=== PATIENT | female | born 1975 | race Caucasian/White ===

== ENCOUNTER → 2021-08-23 | Outpatient (CLI) | payer SELFPAY ==
[2021-08-24 18:06] LABS: HPV 16 Negative (Negative); HPV 18 Negative (Negative); HPV OTHER HR TYPES Negative (Negative)
== END | disposition home or self-care (01) ==
LOC: LAB SHORT 11:49
PROVIDERS: Obstetrics & Gynecology
DX: Z01.419 Encounter for gynecological examination (general) (routine) without abnormal findings (principal)
CPT/HCPCS: 87624; G0123

== ENCOUNTER → 2021-10-31 | Outpatient (CLI) | payer OTHER | END | disposition home or self-care (01) | LOC: LAB SHORT 15:21 → PLD 15:21 | DX: N92.0 Excessive and frequent menstruation with regular cycle (principal) | CPT/HCPCS: 88305 ==

== ENCOUNTER 2023-08-14 08:52 | Day surgery (SDC) | payer OTHER ==
[2023-08-14] VITALS (17 sets, daily range): BP systolic 127–163; BP diastolic 69–101
[~2023-08-14] VITALS: Ht 157.5 cm; Wt 108.6 kg
[~2023-08-14 08:52] MED LIST: Budeprion Xl300 MG PO; CeFAZolin Sodium 2,000 MG in NS 50 ML IV SCH; IBUP800 PO; LEVOTHYROXINE175 MC9 PO; LOSA50 PO; Lactated Ringer's 1,000 ML IV SCH; METF500 PO; Naltrexone HCl50 MG PO; Percocet 5-3251 EACH PO; SERT50 PO; TOPI100 PO
[2023-08-14] MEDS ORDERED: Bupivacaine 0.5% HCl 5 MG/ML 30MLVIAL ONE (09:18)
[2023-08-14] MEDS ORDERED: FentaNYL Citrate 50 MCG/ML 5 ML Injection ONE ×2 (09:46→10:46)
[2023-08-14] MEDS ORDERED: propofoL 20 ML IV ONE (09:46)
[2023-08-14] MEDS ORDERED: Dexamethasone Sod Phos 10 MG/ML 1ML VIAL ONE (10:17)
[2023-08-14] MEDS ORDERED: FentaNYL Citrate 50 MCG/ML 2 ML Injection IV PRN ×2 (11:15)
[2023-08-14] MEDS ORDERED: Atropine Sulfate 0.1 MG/ML 10ML SYR IV PRN (11:15)
[2023-08-14] MEDS ORDERED: Ondansetron HCl 2 MG / ML 2ML Vial IV PRN ×2 (11:15→12:00)
[2023-08-14] MEDS ORDERED: LORazepam 2 MG/ML 1ML Injection IV PRN (11:15)
[2023-08-14] MEDS ORDERED: Morphine Sulfate 4 MG/1 ML Injection IV PRN (11:15)
[2023-08-14] MEDS ORDERED: ePHEDrine Sulfate 50 MG/ML 1ML Injection IV PRN (11:15)
[2023-08-14] MEDS ORDERED: Sugammadex Sodium 200 MG/2ML SDV (100 MG/ML) ONE (11:18)
[2023-08-14] MEDS ORDERED: Labetalol HCL 5 MG/ML 4ML Injection (Single Dose) IV PRN (11:20)
[2023-08-14] MEDS ORDERED: HYDROmorphone HCl/Pf 1MG SYR IV PRN ×2 (11:20→11:55)
[2023-08-14] MEDS ORDERED: Albuterol 2.5 MG/3 ML VIAL INH PRN (11:20)
[2023-08-14] MEDS ORDERED: Metoclopramide HCl 10 MG Tab PO PRN (11:55)
[2023-08-14] MEDS ORDERED: Naloxone HCl 0.4MG / ML 1ML Vial IV PRN (11:55)
[2023-08-14] MEDS ORDERED: Simethicone 80 MG Chew PO PRN (11:55)
[2023-08-14] MEDS ORDERED: Metoclopramide HCl 5MG / ML 2ML Vial IV PRN (11:55)
[2023-08-14] MEDS ORDERED: DiphenhydrAMINE HCL 25 MG Cap PO PRN (12:00)
[2023-08-14] MEDS ORDERED: Acetaminophen 500 MG Tab PO PRN (12:00)
[2023-08-14] MEDS ORDERED: Lactated Ringer's 1,000 ML IV SCH (12:00)
[2023-08-14] MEDS ORDERED: FLU VACC QS2023-24(6MOS UP)/PF 60 MCG/0.5 ML SYRINGE IM SCH (12:00)
[2023-08-14] MEDS ORDERED: Ondansetron 4 MG TAB PO PRN (12:00)
[2023-08-14] MEDS ORDERED: OxyCODONE HCL 5 MG TAB PO PRN (12:00)
[2023-08-14] MEDS ORDERED: Ketorolac Tromethamine 30mg Vial IV PRN (12:15)
[2023-08-14] MEDS ORDERED: FentaNYL Citrate 50 MCG/ML 2 ML Injection ONE (12:22)
[2023-08-14] MEDS ORDERED: Ketorolac Tromethamine 30mg Vial ONE (12:22)
--- NOTE | 2023-08-14 15:58 | NUR ---
POST OP: REPORT RECEIVED FROM WE[employer]ING [employer] OPERATOR . PT TO UNIT AT ABOUT 1315. PT IS ORIENTED, DROWSY. AWAKENS TO VOICE. VSS. SURGICAL SITES AT ABD WNL AND NO BLEED NOTED AT ROWENA PAD. PT DENIES PAIN AT THIS TIME. FAMILY AT BEDSIDE
[2023-08-14] MEDS ORDERED: ACET500 PO (16:13)
[2023-08-14] MEDS ORDERED: Percocet 5-3251 EACH PO (16:15)
[2023-08-14] MEDS ORDERED: IBUP400 PO (16:16)
[2023-08-14] MEDS ORDERED: Insulin Human Lispro 100 Units/ML 3ML Syringe SC SCH (16:30)
[2023-08-14] MEDS ORDERED: MetFORMIN HCl 500 mg PO SCH (17:00)
--- NOTE | 2023-08-14 18:00 | NUR ---
DISCHARGE: PT HAS AMBULATED, VOIDED AND PAIN IS WELL MANAGED. DC PACKET PRINTED AND PT EDUCATED. DC SCRIPTS ALREADY FILLED. PT LEFT UNIT VIA WHEELCHAIR AT ABOUT 1740 WITH AGUSTIN
--- NOTE | 2023-08-14 18:02 | NUR ---
IV IN R WRIST DC'D WNL,TIP INTACT. EDUCATION GIVEN
[2023-08-14] MEDS ORDERED: Topiramate 100 MG Tab PO SCH (21:00)
[2023-08-14] MEDS ORDERED: BuPROPion HCl SR 100 MG TabCR PO SCH (21:00)
[2023-08-15] MEDS ORDERED: Levothyroxine Sodium 0.175 MG TAB PO SCH (06:00)
[2023-08-15] MEDS ORDERED: Sertraline HCl 50 MG Tab PO SCH (09:00)
[2023-08-15] MEDS ORDERED: Losartan Potassium 50 MG Tab PO SCH (09:00)
== END 2023-08-14 17:50 | disposition home or self-care (01) ==
LOC: ORSCMMR 08:52 → SURS 13:01 → ORSCMMR 17:50
PROVIDERS: Obstetrics & Gynecology
PROC: 0UT7FZZ Resection of Bilateral Fallopian Tubes, Via Natural or Artificial Opening With Percutaneous Endoscopic Assistance (ICD-10-PCS; principal; 2023-08-14 10:00)
PROC: 0UT9FZZ Resection of Uterus, Via Natural or Artificial Opening With Percutaneous Endoscopic Assistance (ICD-10-PCS; principal; 2023-08-14 10:00)
DX: N92.1 Excessive and frequent menstruation with irregular cycle (principal); N94.6 Dysmenorrhea, unspecified; Z68.41 Body mass index [BMI] 40.0-44.9, adult; Z80.49 Family history of malignant neoplasm of other genital organs; N83.8 Other noninflammatory disorders of ovary, fallopian tube and broad ligament; I10 Essential (primary) hypertension; E28.2 Polycystic ovarian syndrome; F17.210 Nicotine dependence, cigarettes, uncomplicated; Z79.84 Long term (current) use of oral hypoglycemic drugs; F41.9 Anxiety disorder, unspecified; F32.A Depression, unspecified; E66.01 Morbid (severe) obesity due to excess calories; Z79.899 Other long term (current) drug therapy
CPT/HCPCS: 82947; 86850; 86900; 86901; 88307; A9270; J0690; J1100; J1885; J2405; J2704; J3010; J7120